=== PATIENT | female | born 1990 | race Caucasian/White ===

== ENCOUNTER 2018-12-13 07:28 | Inpatient (IN) | payer OTHER ==
[2018-12-13] MEDS ORDERED: IBUPROFEN 600 MG TAB PO PRN (10:49)
[2018-12-13] MEDS ORDERED: EPSOM SALT 454 GM TP PRN (10:49)
[2018-12-13] MEDS ORDERED: OXYTOCIN/RINGERS LACTATE 1,000 ML IV PRN (10:49)
[2018-12-13] MEDS ORDERED: TERBUTALINE SULFATE 1 MG/ML VIAL IV PRN (10:49)
[2018-12-13] MEDS ORDERED: LR 1,000 ML IV PRN (10:49)
[2018-12-13] MEDS ORDERED: OLIVE OIL 118 ML BTL MISC PRN (10:49)
[2018-12-13] MEDS ORDERED: AMMONIA AROMATIC 1 EACH AMP IH PRN (10:49)
[2018-12-13] MEDS ORDERED: LIDOCAINE 1% 300 MG/30 ML SDV SC PRN (10:49)
[2018-12-13] MEDS ORDERED: MISOPROSTOL 200 MCG TAB PO PRN (10:49)
[2018-12-13] MEDS ORDERED: LR 500 ML IV PRN (11:25)
[2018-12-13] MEDS ORDERED: OXYTOCIN/RINGERS LACTATE 500 ML IV SCH (11:30)
--- NOTE | 2018-12-13 11:41 | PDGENHP ---
History and Physical - Chief Complaint gush of fluid and contractions - History of Present Illness 28 G1 T 40w1d by 8 wk US, here with contractions q 5-10 min since 2300 last night, and gush of fluid at 1400 yesterday. Was seen in the office yesterday morning by Dr. Alberts, was told no evidence of rupture of membranes (though had a gush prior to appointment). Cervix was not checked yesterday, but per pt report not significantly dilated. When cervix was checked in office a few days ago - was 1-2 cm dilated. Has continued to leak fluid - clear, pink tinged. Contractions now are q3-5 min , getting a little more uncomfortable, but is able to talk through contractions. Good FM, no ssx PIH. No chest pain, no dyspnea. course has been uncomplicated, with care with [facility] since 8 wk. labs: 14.0/ 41.3 plt 240 A pos Ab scr neg RPR NR Rub Imm HbsAg Neg HIV neg Std panel neg Thyroid panel wnl pap neg GC/Chl - neg afp neg Innatal neg 28wk: 12.2/37.0 GTT 94 GBS neg History Information - Allergies/Home Medication List Allergies/Adverse Reactions: No Known Allergies Allergy (Unverified 12/13/18 08:50) I have personally reviewed and updated: family history, medical history, social history, surgical history Past Medical History: none - Surgical History Additional surgical history: oral surgery age 12 - Family History Positive for: father with history of CAD younger than 55 ( at 36, heart failure, HTN) Additional family history: M - thyroid disease. Bro - thryoid disease, depression, Etoh abuse. MGM - hepatitis. PGM - Alzheimers, parkinsons. MGF - MS - Social History Smoking Status: Never smoked Alcohol Use: None Drug Use: None Review of Systems Review of Systems: ROS: 10pt was reviewed & negative except for what was stated in HPI & below Physical Exam Physical Exam: FHR 140 reactive, + accels, mod variability, occas decel to 90 < 1 min toco - q 3-5 min VS 36.3 108 96% on RA 120/81 US done - cephalic presentation Constitutional: no apparent distress, appears nourished Eyes: PERRL, anicteric sclera, EOMI Ears, Nose, Mouth, Throat: moist mucous membranes, hearing normal, ears appear normal Cardiovascular: regular rate and rhythym, no murmur, rub, or gallop Respiratory: no respiratory distress, no rales or rhonchi, clear to auscultation Gastrointestinal: normoactive bowel sounds, other (term gravid, NT when not clara) Genitourinary: no bladder fullness Skin: warm, normal color Musculoskeletal: full muscle strength Neurologic: AAOx3 Psychiatric: interacting appropriately, not anxious Lymph, Heme, Immunologic: no cervical LAD Lab Data & Imaging Review Membrane Rupture POSITIVE (NEGATIVE) H 12/13/18 08:40 Assessment & Plan Assessment: 28 G1 at 40w2d, with SROM > 20 hours, appears to be in latent labor. Cephalic presentation confirmed. Discussed options - observe and wait for active labor vs start pitocin (cervix was 1-2 cm dilated a few days ago - exam not repeated yet today). B/R/A of pitocin discssed in setting of prolonged ROM with no active labor. Mutually agreed to proceed with pitocin induction. All questions answered. Virginie Javier MD, FACOG [facility]
[2018-12-13] MEDS ORDERED: OXYTOCIN 10 UNIT/ML VIAL ONE (11:42)
[2018-12-13 11:51] LABS: PLATELET COUNT 170 10^3/uL (150-400)
[2018-12-13] MEDS ORDERED: SIMETHICONE 80 MG TAB CHEW PO PRN (15:17)
[2018-12-13] MEDS ORDERED: HYDROCORTISONE 0.5% CREAM TP PRN (15:17)
[2018-12-13] MEDS ORDERED: ACETAMINOPHEN 325 MG TAB PO PRN (15:17)
--- NOTE | 2018-12-13 15:25 | OBDEL ---
Info Type: Vaginal Presentation at Delivery: Vertex L&D Analgesia/Anesthesia Type: None GBS+: No - Hospital Course Intrapartum: Progressed quickly to complete within 2.5 hours of pitocin being started. 12/13/18 15:21 Indications for Delivery: SROM Vaginal Delivery - Delivery Provider Delivery Physician/CNM: Virginie Javier - Labor and Delivery Onset of Contractions Date: 12/13/18 Onset of Contractions Time: 02:00 Onset of Contractions Type: Induced Rupture of Membranes Date: 12/12/18 Rupture of Membranes Time: 14:00 Rupture of Membranes Type: Spontaneous Amniotic Fluid Color: Clear Dilation Complete Date: 12/13/18 Dilation Complete Time: 14:45 Placenta Delivery Date: 12/13/18 Placenta Delivery Time: 15:08 Total Hours of Labor: 13 Laceration: Other (Specify) (bilateral periurethral, hemostatic, no repair indicated) Vaginal Sponge Count Correct: Yes Vaginal Needle Count Correct: Yes Vaginal Sweep Performed: Yes EBL: 300 Delivery Events: Nuchal Cord (nuchal x 2 reduced on perineum) Delivery Comment: SROM yesterday at 1400, contractions progressed slowly until arrival here. Pitocin induction started at 1200. Progressed quickly - complete at 1445 and started pushing. Spontaneous delivery of vertex over intact perineum, NICCI, bulb suctioned on perineum and nuchal x 2 reduced on perineum. Easy delivery of body with an additional maternal expulsive effort at 1503. Baby delivered to maternal abdomen. Cord clamping was delayed x 1 min. Placenta delivered spontaneously at 1508. Bilateral periurethral lacerations identified and were hemostatic, no repair indicated. Vaginal sweep and clots removed from lower uterine segment. Fundus firm. Total EBL 300ml. Baby and patient left in room stable with RN. - Medications Labor Augmentation/Induction Methods Used: Pitocin Labor Augmentation/Induction Indication: Inadequate Contraction Frequency, Inadequate Contraction Strength Data KRISTIN: 12/11/18 Gestational Age: 40 week(s) and 2 day(s) ICD10 Worksheet Patient Problems: Problems Problem Status Onset Prolonged rupture of membranes, greater than 24 hours, delivered Acute - ICD10 Problem Qualifiers (1) Prolonged rupture of membranes, greater than 24 hours, delivered
[2018-12-13] MEDS: DOCUSATE SODIUM 100 MG CAP PO PRN (21:35)
[2018-12-13] MEDS: IBUPROFEN 600 MG TAB PO PRN (21:35)
[2018-12-14] MEDS: IBUPROFEN 600 MG TAB PO PRN ×4 (04:02→22:46)
[2018-12-14] MEDS: DOCUSATE SODIUM 100 MG CAP PO PRN (10:00)
--- NOTE | 2018-12-14 11:13 | OBPP ---
Progress Note Assessment/Plan: Assessment: 28 y/o PPD #1 s/p doing well. Plan: support and routine PPC. D/c home tomorrow. 12/14/18 11:12 Subjective/ Course: 12/14/18 11:10 Pt is doing well. She has min cramping controlled with Ibuprofen. Baby is doing well, they are working on breast feeding, latch is good. Objective: 12/14/18 04:30 Patient ABO/Rh A POSITIVE 12/13/18 11:30 Temp Pulse Resp BP Pulse Ox 36.4 C 96 16 129/86 H 95 12/14/18 08:32 12/14/18 08:32 12/14/18 08:32 12/14/18 08:32 12/14/18 08:32 Uterine Position/Fundal Height: Umbilicus -2 Uterine Tone: Firm Physical Exam - Physical Exam General Appearance: alert, no apparent distress Neck: non-tender, full range of motion, supple Respiratory: chest non-tender, lungs clear, normal breath sounds Cardiac/Chest: regular rate, rhythm Abdomen: normal bowel sounds Extremities: swelling (no), Sarah's sign (neg)
[2018-12-14] MEDS: FERRO-SEQUELS 65 MG TAB.ER PO SCH (14:03)
[2018-12-15] MEDS: DOCUSATE SODIUM 100 MG CAP PO PRN (08:16)
[2018-12-15] MEDS: FERRO-SEQUELS 65 MG TAB.ER PO SCH (08:16)
[2018-12-15 08:46] VITALS: BP 124/79
--- NOTE | 2018-12-15 09:34 | OBPP ---
Progress Note Assessment/Plan: Assessment: 28 PPD#2 s/p unmedicated - doing well. Plan:DC home, std vag deliv pp instructions reviewed. See dc instructions. Virginie Javier MD, [facility] 12/15/18 09:31 Subjective/ Course: 12/14/18 11:10 Pt is doing well. She has min cramping controlled with Ibuprofen. Baby is doing well, they are working on breast feeding, latch is good. 12/15/18 09:32 Doing well. Ambulating, voiding, has had a BM. Pain well controlled with po ibuprofen. going well. Objective: 12/14/18 04:30 Patient ABO/Rh A POSITIVE 12/13/18 11:30 Temp Pulse Resp BP Pulse Ox 36.2 C 81 16 124/79 H 97 12/15/18 08:46 12/15/18 08:46 12/15/18 08:46 12/15/18 08:46 12/15/18 08:46 gen = pleasant, NAD, dressed in street clothes. CV - RRR chest - CTAB abd - soft, NT, + bs, fundus firm at u-2 ext -no calf tenderness, trace BLE edema Uterine Position/Fundal Height: Umbilicus -2 Uterine Tone: Firm
--- NOTE | 2018-12-15 09:38 | OBGCSDC ---
General Delivery Information - General Info : 1 Para: 1 Abortions: 0 Type: Vaginal L&D Analgesia/Anesthesia Type: None Admission Date: 12/13/18 Labs: Patient ABO/Rh A POSITIVE 12/13/18 11:30 Hct 34.3 % (38.0-47.0) L 12/14/18 04:30 - Hospital Course Intrapartum: Progressed quickly to complete within 2.5 hours of pitocin being started. 12/13/18 15:21 : 12/14/18 11:10 Pt is doing well. She has min cramping controlled with Ibuprofen. Baby is doing well, they are working on breast feeding, latch is good. 12/15/18 09:32 Doing well. Ambulating, voiding, has had a BM. Pain well controlled with po ibuprofen. going well. Vaginal - Delivery Provider Delivery Physician/CNM: Virginie Javier - Diagnosis Labor: Induced Rupture of Membranes Type: Spontaneous Amniotic Fluid Color: Clear Laceration: Other (Specify) (bilateral periurethral, hemostatic, no repair indicated) Delivery Events: Nuchal Cord (nuchal x 2 reduced on perineum) - Delivery EBL: 300 Data RKISTIN: 12/11/18 Gestational Age: 40 week(s) and 4 day(s) Armijo Delivery Date: 12/13/18 Delivery Time: 15:03 Sex of Infant: Male Weight (gm): 3468 g Score (1 Min): 8 Score (5 Min): 9 Discharge Information - Discharge Information Condition: Good Instruction/Follow Up: See Instruction Sheet, Two Weeks (2-3 weeks [facility]), Six Weeks (with physician at [facility])
== END 2018-12-15 14:30 | disposition home or self-care (01) | DRG 807 ==
LOC: FLD 07:28 → OBSVTOIN 13:18 → FOB 17:05
PROVIDERS: ADMIT Hospitalist; ATTEND Hospitalist
PROC: 10E0XZZ Delivery of Products of Conception, External Approach (ICD-10-PCS; principal; 2018-12-13)
DX: O69.82X0 Labor and delivery complicated by other cord entanglement, without compression, not applicable or unspecified (principal); Z37.0 Single live birth; Z3A.40 40 weeks gestation of pregnancy
CPT/HCPCS: J2590; J3105

== ENCOUNTER → 2018-12-25 | Outpatient (CLI) | payer OTHER | LOC: FLACT 12:47 ==